=== PATIENT | female | born 1985 | race Hispanic/Latino ===

== ENCOUNTER 2023-02-27 21:22 | Inpatient (IN) | payer MEDICAID, OTHER, SELFPAY ==
[2023-02-27 21:54] VITALS: BMI 33.0
[2023-02-27] MEDS ORDERED: hydrALAZINE 20 MG/ML VIAL SLOW IVP PRN ×2 (22:25→23:15)
[2023-02-27 22:54] LABS: Fetal Membranes Rupture RUPTURE DETECTED (No Rupture)
[2023-02-27] MEDS ORDERED: Tranexamic Acid 1,000 MG/10 ML VIAL IVP PRN (23:15)
[2023-02-27] MEDS ORDERED: Carboprost 250 MCG/ML AMP IM PRN (23:15)
[2023-02-27] MEDS ORDERED: Promethazine HCl 25 MG/ML VIAL IM PRN (23:15)
[2023-02-27] MEDS ORDERED: Misoprostol 200 MCG TAB PR PRN (23:15)
[2023-02-27] MEDS ORDERED: Azithromycin 500 MG in Sodium Chloride 0.9% 250 ML 250 ML IVPB SCH (23:15)
[2023-02-27] MEDS ORDERED: CEFAZOLIN 2 GM in Sodium Chloride 0.9% 100 ML IVPB SCH (23:15)
[2023-02-27] MEDS ORDERED: Ondansetron PF 4 MG/2 ML Vial IVP PRN (23:15)
[2023-02-27] MEDS ORDERED: Famotidine/PF 20 mg/2ml Vial SLOW IVP PRN (23:15)
[2023-02-27] MEDS ORDERED: Bicitra 30 ML UDCUP PO PRN (23:15)
[2023-02-27] MEDS ORDERED: Methylergonovine 0.2 MG/ML VIAL IM PRN (23:15)
[2023-02-27] MEDS ORDERED: Acetaminophen 500 MG TAB PO PRN (23:15)
[2023-02-27] MEDS ORDERED: Lactated Ringer's 1,000 ML IV SCH (23:30)
[2023-02-27] MEDS ORDERED: NS w/ Oxytocin 30 units 500 ML IV SCH (23:30)
[2023-02-27 23:44] LABS: Hemoglobin 13.2 g/dL (12.0-15.5); Mean Corpuscular HGB CONC 33.2 g/dL (32.0-36.0); Mean Corpuscular Hemoglobin 31.8 pg (27.0-33.0); Mean Corpuscular Volume 95.7 fl (81.6-98.3); Mean Platelet Volume 13.6 fl (7.4-10.4); Platelet Count 202 10x3/uL (150-450); RBC Distribution Width 14.2 % (11.5-14.5); Red Blood Cell (RBC) Count 4.15 10x6/uL (3.90-5.03); White Blood Cell (WBC) Count 9.8 10x3/uL (3.5-10.5)
[2023-02-28] MEDS ORDERED: Naloxone HCl 0.4 mg/ml Vial IV PRN (00:01)
[2023-02-28] MEDS ORDERED: Fentanyl 100 MCG/2 ML VIAL SLOW IVP PRN (00:01)
[2023-02-28] MEDS ORDERED: HYDROmorphone 2 MG/ML VIAL SLOW IVP PRN (00:01)
[2023-02-28] MEDS ORDERED: Ketorolac Tromethamine 30 MG/ML VIAL IVP PRN (00:01)
[2023-02-28] MEDS ORDERED: Ondansetron HCl/PF 4 MG/2 ML Vial IVP PRN (00:01)
[2023-02-28] MEDS ORDERED: Ondansetron PF 4 MG/2 ML Vial IVP PRN ×2 (00:01→09:04)
[2023-02-28] MEDS ORDERED: Moisturizing Cream (Eucerin) 113 GM JAR TOP PRN (00:01)
[2023-02-28] MEDS ORDERED: Meperidine HCl/PF 25 MG/ML VIAL SLOW IVP PRN (00:01)
[2023-02-28] MEDS ORDERED: Naloxone HCl 0.4 mg/ml Vial IVP PRN ×2 (00:01)
[2023-02-28] MEDS ORDERED: Promethazine HCl 25 MG/ML VIAL IM PRN (00:01)
[2023-02-28] MEDS ORDERED: Promethazine HCl 25 MG SUPP PR PRN (00:01)
[2023-02-28] MEDS ORDERED: diphenhydrAMINE 50 MG/ML VIAL IVP PRN (00:01)
[2023-02-28] MEDS ORDERED: Ketorolac Tromethamine 30 MG/ML VIAL IVP SCH (00:15)
[2023-02-28] MEDS ORDERED: Communication Order-Pharmacy FS SCH (00:15)
[2023-02-28] MEDS ORDERED: Morphine PF 10 MG/10 ML VIAL ONE (00:16)
[2023-02-28] MEDS ORDERED: Fentanyl 100 MCG/2 ML VIAL ONE (00:16)
[2023-02-28] MEDS ORDERED: Oxytocin 10 UNITS/ML VIAL ONE (00:17)
[2023-02-28 00:18] LABS: Syphilis Antibody Nonreactive (Nonreactive); Syphilis Antibody Index 0.03 S/CO (<1.00 Non-Reactive)
[2023-02-28 00:19] LABS: HBSAg Index 0.14 S/CO (0-0.99); Hep B Surf Ag - L&D Non-Reactive S/CO (NonReactive)
[2023-02-28 03:24] LABS: Hemoglobin 12.7 g/dL (12.0-15.5); Mean Corpuscular HGB CONC 32.7 g/dL (32.0-36.0); Mean Corpuscular Hemoglobin 32.1 pg (27.0-33.0); Mean Platelet Volume 12.9 fl (7.4-10.4); Platelet Count 195 10x3/uL (150-450); RBC Distribution Width 14.6 % (11.5-14.5); Red Blood Cell (RBC) Count 3.96 10x6/uL (3.90-5.03); White Blood Cell (WBC) Count 12.6 10x3/uL (3.5-10.5)
[2023-02-28] MEDS ORDERED: Diphenoxylate HCl/Atropine Tablet PO SCH (03:30)
[2023-02-28 05:44] LABS: D-Dimer Test 20.64 mg/L FEU (0.19-0.50); INR-International Normal Ratio 1.3
[2023-02-28] MEDS ORDERED: Bisacodyl 10 MG SUPP PR PRN (09:04)
[2023-02-28] MEDS ORDERED: Simethicone Chewable 80 MG TAB PO PRN (09:04)
[2023-02-28] MEDS ORDERED: hydrALAZINE 20 MG/ML VIAL SLOW IVP PRN (09:04)
[2023-02-28] MEDS ORDERED: Boostrix 0.5 ML (Tdap) VIAL (>/=7 yrs of age) IM ONE (09:04)
[2023-02-28] MEDS ORDERED: diphenhydrAMINE 25 MG CAP PO PRN (09:04)
[2023-02-28] MEDS ORDERED: Lanolin Ointment 7 GM TUBE TOP PRN (09:04)
[2023-02-28] MEDS: Docusate 100 MG CAP PO SCH ×2 (09:44→21:35)
[2023-02-28] MEDS: Prenatal Vitamin 1 TAB PO SCH (09:44)
[2023-02-28] MEDS ORDERED: HYDROcodone/Acetaminophen 5/325 mg Tablet PO PRN (12:15)
[2023-02-28] MEDS: Ketorolac Tromethamine 30 MG/ML VIAL IVP SCH ×3 (14:07→21:35)
[2023-02-28] MEDS: Ferrous Sulfate 325 MG TAB PO SCH ×2 (14:08→20:21)
[2023-02-28] MEDS: Ibuprofen 800 MG TAB PO SCH (20:21)
[2023-03-01 04:47] LABS: Hemoglobin 10.4 g/dL (12.0-15.5); Mean Corpuscular HGB CONC 33.1 g/dL (32.0-36.0); Mean Corpuscular Hemoglobin 32.4 pg (27.0-33.0); Mean Corpuscular Volume 97.8 fl (81.6-98.3); Mean Platelet Volume 13.8 fl (7.4-10.4); Platelet Count 171 10x3/uL (150-450); RBC Distribution Width 14.6 % (11.5-14.5); Red Blood Cell (RBC) Count 3.21 10x6/uL (3.90-5.03); White Blood Cell (WBC) Count 23.5 10x3/uL (3.5-10.5)
[2023-03-01] MEDS: Ibuprofen 800 MG TAB PO SCH ×3 (06:44→21:37)
[2023-03-01] MEDS: HYDROcodone/Acetaminophen 5/325 mg Tablet PO PRN ×2 (07:57→13:13)
[2023-03-01] MEDS: Prenatal Vitamin 1 TAB PO SCH (07:58)
[2023-03-01] MEDS: Docusate 100 MG CAP PO SCH ×2 (08:00→21:37)
[2023-03-01] MEDS: Ferrous Sulfate 325 MG TAB PO SCH ×2 (14:53→21:40)
[2023-03-01 20:02] VITALS: TEMP 98.4
[2023-03-02] MEDS: Ibuprofen 800 MG TAB PO SCH ×2 (05:05→14:21)
[2023-03-02] MEDS: Ferrous Sulfate 325 MG TAB PO SCH (07:27)
[2023-03-02] MEDS: Prenatal Vitamin 1 TAB PO SCH (08:25)
[2023-03-02] MEDS: Docusate 100 MG CAP PO SCH (08:25)
[2023-03-02 09:15] VITALS: BP 113/69
== END 2023-03-02 16:25 | disposition home or self-care (01) | DRG 787 ==
LOC: CSHLD/OP 21:22 → CSHLD 23:35 → CSHPP 02-28 05:50
PROVIDERS: ADMIT Family Medicine; ATTEND Family Medicine
PROC: 10D00Z1 Extraction of Products of Conception, Low, Open Approach (ICD-10-PCS; principal; 2023-02-28)
PROC: 0UC97ZZ Extirpation of Matter from Uterus, Via Natural or Artificial Opening (ICD-10-PCS; 2023-02-28)
DX: O42.02 Full-term premature rupture of membranes, onset of labor within 24 hours of rupture (principal); O72.1 Other immediate postpartum hemorrhage; Z3A.39 39 weeks gestation of pregnancy; Z37.0 Single live birth; Z90.49 Acquired absence of other specified parts of digestive tract; Z79.82 Long term (current) use of aspirin; O34.211 Maternal care for low transverse scar from previous cesarean delivery; O69.81X0 Labor and delivery complicated by cord around neck, without compression, not applicable or unspecified
CPT/HCPCS: 36415; 51702; 84112; 85027; 85049; 85300; 85362; 85379; 85384; 85610; 85730; 86780; 86850; 86900; 86901; 87340; 99285; J1885; J2210; J2274; J2590; J3010; J3490